=== PATIENT | male | born 1960 | race Caucasian/White ===

== ENCOUNTER → 2017-05-26 | Outpatient (CLI) | payer BC ==
[2017-05-26 08:50] LABS: Blood Urea Nitrogen 14 mg/dL (9-20); Non-African American GFR(MDRD) >60 (>60 ml/min/1.73 sqM)
--- NOTE | 2017-05-26 09:43 | CT ---
EXAMINATION TYPE: CT ChestAbdPelvis w con DATE OF EXAM: 05/26/2017 COMPARISON: NONE HISTORY: Follow up to prostate CA CT DLP: 1836 mGycm Automated exposure control for dose reduction was used. CONTRAST: CT scan of the chest, abdomen and pelvis is performed with Oral Contrast and with IV Contrast, patien t injected with 100 mL of Omnipaque 300. FINDINGS: LUNGS: The lungs are grossly clear, there is no concerning parenchymal mass or nodule identified. T here is no pleural effusion or pneumothorax seen. The tracheobronchial tree is patent. Linear change s involving the left lower lobe most typical scar or atelectasis. No sizable pulmonary nodules. There is a pleural-based nodule measuring 1 mm within the superior segment right lower lobe and posteriorl y within the left superior segment lower lobe. 3 mm subpleural nodule anterior segment right upper lo be stable Findings stable from previous. MEDIASTINUM: Soft tissue fullness in the mediastinum is stable from the previous exam measures 13 Joaquín nsfield units and may represent a small amount of pericardial fluid rather than adenopathy. OTHER: No additional significant abnormality is seen. LIVER/GB: Hyperdense focus within the right lobe of the liver measuring 1.1 cm is retrospectively sta ble may represent flash hemangioma. Metastasis felt less likely. Not entirely excluded.. PANCREAS: No significant abnormality is seen. SPLEEN: No significant abnormality is seen. ADRENALS: No significant abnormality is seen. KIDNEYS: No significant abnormality is seen. BOWEL: No significant abnormality is seen. LYMPH NODES: There is interval enlargement of a iliac chain lymph nodes which previously measured 1 c m or less and now measure 1.5 cm on the right in short axis. Additional 1 cm node also noted. OSSEOUS STRUCTURES: There are enlarged and sclerotic lesions involving the left rib cage which appear on the previous exam appear to be increased in size. Sclerotic focus involving the sternum on the ri ght also suggestive of metastasis there is numerous focal areas of sclerosis throughout the vertebral column of the thoracic and lumbar spine with age indeterminate superior endplate compression deformi ties of L5 and L2. Findings are compatible with bony metastases. Facet arthropathy and degenerative c hange also noted. Sclerotic foci within the sacrum and right ischium and iliac bone are also suggesti ve of focal areas of metastases. Sclerosis involving the pubic rami bilaterally also suspicious of me tastasis. Sclerotic foci involving the rib cage on the right also noted. OTHER: Dilation of the left gonadal vessel stable from the previous exam. Prostate remains somewhat h eterogeneous in appearance and somewhat irregular morphology. IMPRESSION: 1. There is interval enlargement of right iliac chain lymphadenopathy now measuring short axis of 1.5 cm and previously measuring 1 cm. 2. There does appear to be progression of bony metastasis 3. Stable pulmonary nodules. All measure less than 5 mm
--- NOTE | 2017-05-26 14:11 | NM ---
EXAMINATION TYPE: NM bone scan whole body DATE OF EXAM: 05/26/2017 COMPARISON: Prior bone scan 03/24/2016, CT chest abdomen pelvis 05/26/2017 HISTORY: Prostate carcinoma, C 61, bone metastases, C 79.51 Delayed whole-body scanning was performed following the injection of 27.5 mCi Tc 99m MDP. Images acq uired 5 hours post injection. FINDINGS: There is been progression in the number and size of metastatic foci within the skeleton. Multiple foc i are present within the thoracic spine, bilateral ribs, pelvis, proximal right femur, right scapula, left shoulder. Soft tissue uptake is normal. Questionable focus over the right orbit region. IMPRESSION: Progression in size and number of metastatic foci.
== END | disposition home or self-care (01) ==
LOC: RADCTMAIN 08:02
PROVIDERS: ATTEND Internal Medicine Hematology & Oncology
DX: C61 Malignant neoplasm of prostate (principal); C79.51 Secondary malignant neoplasm of bone; R91.8 Other nonspecific abnormal finding of lung field; R59.0 Localized enlarged lymph nodes
CPT/HCPCS: 82565; 84520; 71260; 74177; 36415; 78306; A9503; Q9967

== ENCOUNTER → 2017-12-13 | Outpatient (CLI) | payer BC ==
[2017-12-13 09:08] LABS: Blood Urea Nitrogen 22 mg/dL (9-20)
--- NOTE | 2017-12-13 10:33 | CT ---
EXAMINATION TYPE: CT ChestAbdPelvis w con DATE OF EXAM: 12/13/2017 COMPARISON: CT chest abdomen and pelvis May 26, 2017 and older studies HISTORY: Follow up to stage IV prostate cancer present for 3 years currently on chemotherapy. CT DLP: 679.1 mGycm. Automated Exposure Control for Dose Reduction was Utilized. CONTRAST: CT scan of the thorax, abdomen and pelvis is performed with oral and with IV Contrast, patient inject ed with 100 mL of Omnipaque 300. FINDINGS: LUNGS: There is mild biapical pleural/parenchymal scarring redemonstrated. There is posterior and lef t basilar linear scarring redemonstrated. There is no suspicious greater than 5 mm noncalcified nodul e or mass. There is no pleural effusion or pneumothorax seen bilaterally. Tracheobronchial tree is pa tent. MEDIASTINUM: There are no greater than 1 cm hilar or mediastinal lymph nodes. No cardiomegaly or pe ricardial effusion is seen. OTHER: Small degree of bilateral gynecomastia is redemonstrated. LIVER/GB: No significant abnormality is appreciated. PANCREAS: No significant abnormality is seen. SPLEEN: No significant abnormality is seen. ADRENALS: No significant abnormality is seen. KIDNEYS: No significant abnormality is seen. BOWEL: No significant abnormality is seen. GENITAL ORGANS: Heterogeneous lobulated nonenlarged prostate gland or remnant is again seen bulging on bladder base. Adjacent pelvic phleboliths are redemonstrated. LYMPH NODES: There is persistent 1.3 x 1.1 cm right iliac chain lymph node axial image 104 felt sligh tly diminished in size from most recent prior. There is slightly less prominent but suspicious right common iliac lymph node measuring 10 x 9 mm axial image 97. Draining left gonadal vessel left periaortic region is redemonstrated. No new greater than 1cm abdomi nal or pelvic lymph nodes are appreciated. OSSEOUS STRUCTURES: There is redemonstration multifocal sclerotic lesions in the thoracic vertebra wi th some progression as for reference there is new right T11 sclerotic lesion coronal image 62 and new subtle right sclerotic T9 lesion coronal image 64. Prominent sclerotic lesions right T7 vertebra and diffuse left T5 vertebra are redemonstrated. There is new sclerosis distal right clavicle and new sc lerosis of the left coracoid process extending into glenoid cavity of the upper scapula for reference . There is healing or healed pathologic fractures left anterolateral seventh and lateral ninth ribs r edemonstrated. There is multilevel involvement in the lumbar spine with mild height loss superior L2, L3, and L5 endplates redemonstrated. There is facet arthropathy lower lumbar levels. OTHER: No significant additional abnormality is seen. IMPRESSION: Overall mixed response. Right pelvic adenopathy felt slightly improved versus prior. No n ew adenopathy is seen. Worsening osseous metastatic disease however is noted as detailed above.
--- NOTE | 2017-12-14 10:20 | NM ---
EXAMINATION TYPE: NM bone scan whole body DATE OF EXAM: 12/13/2017 COMPARISON: Prior bone scan 05/26/2017, CT chest abdomen pelvis 12/13/2017 HISTORY: Prostate carcinoma, C 61 Delayed whole-body scanning was performed following the injection of 25.7 mCi Tc 99m MDP. Images acq uired 6 hours post injection. FINDINGS: Too numerous to count foci are present throughout the skeleton of increased [employer] upta ke include the calvarium convexity, clavicle on the right, left scapula, ribs and sternum, thoracic a nd lumbar spine, pelvis, proximal femurs with some progression in numbers of foci and intensity, size of lesions as compared to prior exam. IMPRESSION: Progression in size and number of metastatic foci
== END | disposition home or self-care (01) ==
LOC: RADCTMAIN 08:30
PROVIDERS: ATTEND Internal Medicine Hematology & Oncology
DX: C79.51 Secondary malignant neoplasm of bone (principal); C61 Malignant neoplasm of prostate
CPT/HCPCS: 82565; 84520; 71260; 74177; 36415; 78306; A9503; Q9967

== ENCOUNTER → 2018-01-22 | Outpatient (CLI) | payer BC ==
--- NOTE | 2018-01-22 13:54 | US ---
EXAMINATION TYPE: US venous doppler duplex UE RT DATE OF EXAM: 01/22/2018 COMPARISON: NONE CLINICAL HISTORY: Pain in Right Upper Limb M79.621. Pain right arm. Edema and bruising near right elb ow. Neulasta patch right upper arm last week SIDE PERFORMED: right Grayscale, color doppler, spectral doppler imaging performed of the deep veins of the right upper ext remity. There is normal flow, compressibility and vascular waveforms. Mild nonspecific subcutaneous edema is noted. Right Arm: No evidence of DVT IMPRESSION: No sonographic evidence of deep venous thrombosis within the right upper extremity. Nonspecific subcu taneous edema is mild.
== END | disposition home or self-care (01) ==
LOC: RADUSWWP 12:38
PROVIDERS: ATTEND Internal Medicine Hematology & Oncology
DX: R60.0 Localized edema (principal)

== ENCOUNTER → 2018-03-14 | Outpatient (CLI) | payer MEDICARE, OTHER ==
--- NOTE | 2018-03-14 15:12 | CT ---
EXAMINATION TYPE: CT ChestAbdPelvis wo con DATE OF EXAM: 03/14/2018 COMPARISON: 12/13/2017 HISTORY: Prostate Cancer CT DLP: 1212mGycm Unenhanced CT of the Chest, Abdomen and Pelvis Unenhanced CT of the chest ,abdomen and pelvis is performed. The lack of intravenous contrast limits evaluation of the solid and hollow viscera. Oral contrast: Yes CT Chest: LUNGS: New mild pleural parenchymal density right lower lobe. No focal consolidation. No pulmonary no dule or mass is detected. No pleural effusion or CT evidence of interstitial lung disease. MEDIASTINUM: Thoracic aorta is of normal caliber. The heart is not enlarged. No evidence for media stinal mass or adenopathy. HILAR STRUCTURES: No evidence for mass. No hilar adenopathy is appreciated. OTHER: No significant abnormality. CONTRAST CT ABDOMEN AND PELVIS: LIVER/GB: Lack of contrast limits evaluation however there are multiple hypoattenuating masses noted throughout the liver compatible with metastatic disease. The largest mass measures approximately 12.6 x 12.4 cm and involves both right and left hepatic lobes. Masses involve all segments. There is evid ence of hepatomegaly. PANCREAS: No inflammation. No distinct mass. SPLEEN: No splenic enlargement. No lesion seen. ADRENALS: No nodule. No thickening. KIDNEYS/BLADDER: No hydronephrosis. No nephrolithiasis. No disctinct renal mass. BOWEL: Normal appendix. Normal bowel caliber. No inflammation. GENITAL ORGANS: No gross abnormality. LYMPH NODES: Stable right iliac chain adenopathy measuring 1.2 cm. Additional periaortic lymph nodes measuring less than 1 cm. AORTA: No significant abnormality. OSSEOUS STRUCTURES: Blastic metastatic lesions are again noted involving the thoracic and lumbar vert ebra with the mild loss of height stable from prior examination. Expansile rib lesions noted. Overall no significant interval change with regards to metastatic disease to the bony structures. OTHER: Small amount of free fluid within the pelvis. IMPRESSION: 1. Innumerable hepatic masses compatible with metastatic disease. Associated hepatomegaly. 2. Stable blastic metastatic disease to the osseous structures. 3. Stable right iliac chain adenopathy.
--- NOTE | 2018-03-14 15:33 | NM ---
EXAMINATION TYPE: NM bone scan whole body DATE OF EXAM: 03/14/2018 COMPARISON: CT scan 03/14/2018, bone scan 12/13/2017 HISTORY: Prostate cancer Delayed whole-body scanning was performed following the injection of 24.7 mCi Tc 99m MDP. Images acq uired 3.5 hours post injection. FINDINGS: Too numerous to count foci are present throughout the skeleton of increased [employer] upta ke include the calvarium convexity, clavicle on the right, left scapula, ribs and sternum, thoracic a nd lumbar spine, pelvis, proximal femurs which is stable compared to prior exam. IMPRESSION: Stable diffuse skeletal metastasis has a similar appearance to the prior exam without evidence of sig nificant interval change.
== END ==
LOC: RADNMMAIN 10:46
PROVIDERS: ATTEND Internal Medicine Hematology & Oncology
DX: C61 Malignant neoplasm of prostate (principal); C79.51 Secondary malignant neoplasm of bone; R16.0 Hepatomegaly, not elsewhere classified
CPT/HCPCS: 82565; 84520; 71250; 74176; 36415; 78306; A9503

== ENCOUNTER 2018-03-15 13:23 | Inpatient (IN) | payer MEDICARE, OTHER ==
[2018-03-15] MEDS ORDERED: SODIUM CHLORIDE 0.9% 2,000 ML IV STA (14:10)
[2018-03-15] MEDS ORDERED: MORPHINE SULFATE 4 MG/ML SYRINGE IVP STA ×2 (14:27→16:02)
[2018-03-15] MEDS ORDERED: ONDANSETRON 4 MG/2 ML VIAL IVP STA (14:27)
--- NOTE | 2018-03-15 14:51 | ED ---
Abdominal Pain HPI - General Chief Complaint: Abdominal Pain Stated Complaint: abd pain Time Seen by Provider: 03/15/18 14:10 Source: patient, RN notes reviewed Mode of arrival: wheelchair Limitations: no limitations - History of Present Illness Initial Comments: This a 57-year-old male presents emergency Department chief complaint of worsening abdominal pain, dehydration. Patient is currently being treated for prostate cancer by Dr. He. Patient states she's been on several different chemotherapeutic treatments. Last treatment in the middle of February. Patient has computed tomography scan and bone scan yesterday. Patient states that he's had worsening upper abdominal pain. Patient states he's nauseated and has not been eating for one week. Patient spends concerned about dehydration. He did have an IV fluids earlier this week. Patient family states that he is more pale and usually does complain of weakness generalized, shortness of breath worse with exertion. Patient states she's had this in the past also. Denies any headache or dizziness. - Related Data Home Medications Medication Instructions Recorded Confirmed Hydrocodone/Acetaminophen [[place] 1 tab PO Q4HR PRN 03/15/18 03/15/18 7.5-325] Ibuprofen [Motrin Ib] 600 mg PO TID PRN 03/15/18 03/15/18 Ondansetron HCl [Zofran] 8 mg PO Q6HR PRN 03/15/18 03/15/18 Pantoprazole [Protonix] 40 mg PO DAILY 03/15/18 03/15/18 Allergies Allergy/AdvReac Type Severity Reaction Status Date / Time No Known Allergies Allergy Verified 03/15/18 14:22 Review of Systems ROS Statement: Those systems with pertinent positive or pertinent negative responses have been documented in the HPI. ROS Other: All systems not noted in ROS Statement are negative. Past Medical History Past Medical History: Cancer, GERD/Reflux Additional Past Medical History / Comment(s): prostate cancer History of Any Multi-Drug Resistant Organisms: None Reported Past Surgical History: Prostate Surgery Past Psychological History: No Psychological Hx Reported Smoking Status: Never smoker Past Alcohol Use History: None Reported Past Drug Use History: None Reported General Exam Limitations: no limitations General appearance: alert, in no apparent distress Head exam: Present: atraumatic, normocephalic, normal inspection Neck exam: Present: normal inspection. Absent: tenderness, meningismus, lymphadenopathy Respiratory exam: Present: normal lung sounds bilaterally. Absent: respiratory distress, wheezes, rales, rhonchi, stridor Cardiovascular Exam: Present: normal rhythm, tachycardia, normal heart sounds. Absent: systolic murmur, diastolic murmur, rubs, gallop, clicks GI/Abdominal exam: Present: soft, distended, tenderness (Moderate to severe tenderness in the epigastric quadrant), rigid, normal bowel sounds. Absent: guarding, rebound Back exam: Absent: CVA tenderness (R), CVA tenderness (L) Skin exam: Present: warm, dry, intact, normal color. Absent: rash Course Vital Signs 03/15/18 13:26 Temperature 98.1 F Pulse Rate 108 H Respiratory 20 Rate Blood Pressure 136/60 O2 Sat by Pulse 99 Oximetry Medical Decision Making - Medical Decision Making 57-year-old male present emergency department for dehydration, abdominal pain. Patient CT was reviewed from yesterday which showed extensive hepatic mass, osseus lesions. Patient is found to be treated dehydrated, intractable abdominal pain. Patient will be admitted to the hospital at this time for IV hydration, pain control consultation to oncology. - Lab Data Result diagrams: 03/15/18 14:38 03/15/18 14:38 Lab Results 03/15/18 03/15/18 03/15/18 Range/Units 14:38 14:38 14:38 WBC 8.3 (3.8-10.6) k/uL RBC 2.63 L (4.30-5.90) m/uL Hgb 8.3 L (13.0-17.5) gm/dL Hct 27.1 L (39.0-53.0) % MCV 103.1 H (80.0-100.0) fL MCH 31.6 (25.0-35.0) pg MCHC 30.6 L (31.0-37.0) g/dL RDW 16.8 H (11.5-15.5) % Plt Count 87 L (150-450) k/uL Neutrophils % 83 % Lymphocytes % 9 % Monocytes % 6 % Eosinophils % 1 % Basophils % 0 % Neutrophils # 6.9 (1.3-7.7) k/uL Lymphocytes # 0.7 L (1.0-4.8) k/uL Monocytes # 0.5 (0-1.0) k/uL Eosinophils # 0.1 (0-0.7) k/uL Basophils # 0.0 (0-0.2) k/uL Manual Slide Review Performed Polychromasia Present Hypochromasia Marked Anisocytosis Slight Anisocytosis (manual) Present Macrocytosis Moderate Fragmented RBCs Present Sodium 140 (137-145) mmol/L Potassium 5.2 H (3.5-5.1) mmol/L Chloride 102 (98-107) mmol/L Carbon Dioxide 15 L (22-30) mmol/L Anion Gap 23 mmol/L BUN 65 H (9-20) mg/dL Creatinine 2.54 H (0.66-1.25) mg/dL Est GFR (CKD-EPI)AfAm 31 (>60 ml/min/1.73 sqM) Est GFR (CKD-EPI)NonAf 27 (>60 ml/min/1.73 sqM) Glucose 99 (74-99) mg/dL Plasma Lactic Acid Neo 2.2 H* (0.7-2.0) mmol/L Calcium 7.9 L (8.4-10.2) mg/dL Total Bilirubin 1.2 (0.2-1.3) mg/dL AST 937 H (17-59) U/L ALT 654 H (21-72) U/L Alkaline Phosphatase 659 H (38-126) U/L Total Protein 6.8 (6.3-8.2) g/dL Albumin 4.1 (3.5-5.0) g/dL Amylase 54 (30-110) U/L Lipase 79 (23-300) U/L Disposition Clinical Impression: Intractable abdominal pain, Prostate cancer, primary, with metastasis from prostate to other site, Transaminitis, Acute kidney injury, Dehydration Disposition: ADMITTED IP TO THIS [facility] Condition: Fair Referrals: Stevie He MD [Primary Care Provider] - 1-2 days
[2018-03-15 15:06] LABS: Albumin 4.1 g/dL (3.5-5.0); Calcium 7.9 mg/dL (8.4-10.2); Potassium 5.2 mmol/L (3.5-5.1); Total Bilirubin 1.2 mg/dL (0.2-1.3); Total Protein 6.8 g/dL (6.3-8.2)
[2018-03-15 15:16] LABS: Anisocytosis Slight; Basophils % (A) 0 %; Eosinophils # (A) 0.1 k/uL (0-0.7); Eosinophils % (A) 1 %; HCT 27.1 % (39.0-53.0); HGB 8.3 gm/dL (13.0-17.5); Hypochromasia Marked; Lymphocytes # (A) 0.7 k/uL (1.0-4.8); Lymphocytes % (A) 9 %; MCH 31.6 pg (25.0-35.0); MCHC 30.6 g/dL (31.0-37.0); MCV 103.1 fL (80.0-100.0); Macrocytosis Moderate; Mean Platelet Volume 9.4; Monocytes # (A) 0.5 k/uL (0-1.0); Monocytes % (A) 6 %; Neutrophils # (A) 6.9 k/uL (1.3-7.7); Neutrophils % (A) 83 %; RBC 2.63 m/uL (4.30-5.90); RDW 16.8 % (11.5-15.5); WBC 8.3 k/uL (3.8-10.6)
[2018-03-15 15:52] LABS: Anisocytosis (M) Present; Polychromasia Present
[2018-03-15 15:53] LABS: Platelet Count 87 k/uL (150-450); RBC Fragments Present
[2018-03-15] MEDS ORDERED: NALOXONE 0.4 MG/ML 1 ML VIAL IV PRN (16:18)
[2018-03-15] MEDS ORDERED: MORPHINE SULFATE 4 MG/ML SYRINGE IV PRN (16:18)
[2018-03-15] MEDS ORDERED: ONDANSETRON 4 MG/2 ML VIAL IVP PRN (16:18)
[2018-03-15 17:23] LABS: Amorphous Sediment,Urine Rare /hpf; Appearance,Urine Cloudy (Clear); Bilirubin,Urine Negative (Negative); Blood,Urine Small (Negative); Color,Urine Yellow; Glucose,Urine (UA) Negative (Negative); Hyaline Casts,Urine 10 /lpf (0-2); Ketones,Urine 1+ (Negative); Leukocyte Esterase,Urine Negative (Negative); Mucus,Urine Rare /hpf; Nitrite,Urine Negative (Negative); PH, Urine 5.5 (5.0-8.0); Protein,Urine 2+ (Negative); RBC,Urine 2 /hpf (0-5); Specific Gravity,Urine 1.012 (1.001-1.035); Squamous Epithelial Cell,Urine 1 /hpf (0-4); Urobilinogen,Urine <2.0 mg/dL (<2.0); WBC,Urine 12 /hpf (0-5)
[2018-03-15] MEDS: SODIUM CHLORIDE 0.9% 1,000 ML IV SCH (18:13)
[2018-03-15] MEDS: oxyCODONE-APAP 5-325MG 1 EACH TAB PO PRN ×2 (18:17→22:22)
[2018-03-16] MEDS: SODIUM CHLORIDE 0.9% 1,000 ML IV SCH ×2 (03:11→13:21)
[2018-03-16] MEDS: oxyCODONE-APAP 5-325MG 1 EACH TAB PO PRN ×2 (03:13→07:59)
[2018-03-16] MEDS: PANTOPRAZOLE 40 MG/10 ML VIAL IV SCH (08:01)
[2018-03-16] MEDS ORDERED: ONDANSETRON 4 MG/2 ML VIAL IVP PRN (08:25)
[2018-03-16 08:27] LABS: Anisocytosis Slight; Basophils % (A) 0 %; Eosinophils # (A) 0.1 k/uL (0-0.7); Eosinophils % (A) 1 %; HGB 7.3 gm/dL (13.0-17.5); Hypochromasia Marked; Lymphocytes # (A) 0.7 k/uL (1.0-4.8); Lymphocytes % (A) 9 %; MCH 32.1 pg (25.0-35.0); MCHC 30.4 g/dL (31.0-37.0); MCV 105.5 fL (80.0-100.0); Macrocytosis Moderate; Mean Platelet Volume 8.5; Monocytes # (A) 0.5 k/uL (0-1.0); Monocytes % (A) 6 %; Neutrophils # (A) 6.8 k/uL (1.3-7.7); Neutrophils % (A) 81 %; RBC 2.27 m/uL (4.30-5.90); WBC 8.4 k/uL (3.8-10.6)
[2018-03-16 08:29] LABS: Platelet Count 73 k/uL (150-450)
[2018-03-16 08:36] LABS: Potassium 5.3 mmol/L (3.5-5.1)
[2018-03-16 09:57] VITALS: BMI 24.4
[2018-03-16 10:13] LABS: Magnesium 3.2 mg/dL (1.6-2.3); Phosphorus 3.7 mg/dL (2.5-4.5)
[2018-03-16] MEDS: MORPHINE ORAL SOLN 10 MG/5 ML CUP PO PRN ×3 (10:14→20:15)
--- NOTE | 2018-03-16 11:56 | P.HPIM ---
History of Present Illness H&P Date: 03/16/18 Chief Complaint: Abdominal pain, nausea 57-year-old male who presented to the emergency room with a chief complaint of abdominal pain, nausea, and generalized weakness. He reports shortness of breath with exertion, but not at rest. He fatigues very quickly. He states he has been unable to tolerate PO intake for at least a week. The patient has a history of prostate cancer with mets to the liver and bone. He states he has underwent 18 rounds of chemotherapy. He reports he has an appointment with [facility] in [place] on 03/20/2018 for evaluation to be placed into a clinical trial. CT abdomen and pelvis completed 03/14/2018 revealed multiple hypoattenuating masses noted throughout the liver compatible with metastatic disease. The largest mass measures approximately 12.612.4 cm and involves both right and left hepatic lobes. Masses involve all segments. There is evidence of hepatomegaly. Stable right iliac chain adenopathy measuring 1.2 cm. Stable blastic metastatic disease to the osseous structures. Bone scan completed 03/14/2018 revealed too numerous to count foci are present throughout the skeleton of increased radio pharmaceutical uptake include the calvarium convexity, clavicle on the right, left scapula, ribs and sternum, thoracic and lumbar spine, pelvis, proximal femurs which are stable compared to prior examination Laboratory data: WBC 8.3. Hemoglobin 8.3. Platelet count 87. Sodium 140. Potassium 5.2. BUN 65. Creatinine 2.54. Glucose 99. Lactic acid 2.2. AST 937. ALT 654. Alkaline phosphatase 659. Urinalysis reveals: 2+ proteinuria, 1+ ketones, small blood, WBC 12, few WBC clumps, hyaline casts 10 The patient was admitted to the hospital under the care of Dr. Madden. Consultations were placed to Dr. He. Review of Systems GENERAL: Patient denies fever. Denies chills. EYES: Denies blurred vision. Denies vision changes. Denies eye pain. EARS, NOSE, MOUTH, & THROAT: Denies headache. Denies sore throat. Denies ear pain. RESPIRATORY: Positive for shortness of breath with exertion. Denies sputum production. Denies hemoptysis. CARDIOVASCULAR: Denies chest pain or pressure. Denies palpitations. Denies arrhythmias. GASTROINTESTINAL: Positive for abdominal pain. Positive for nausea. Positive for decreased appetite. Positive for decreased oral intake x minimum of one week. Denies heartburn. Denies blood in the stool. GENITOURINARY: Denies burning. Denies dysuria. Denies cloudy urine. Denies blood in the urine. MUSCULOSKELETAL: Positive for extensive skeletal pain secondary to bone metastases INTEGUMENTARY: Denies pruitis. Denies rash. PSYCHIATRIC: Positive for depression. Denies suicidal or homicial ideations. ENDOCRINE: Positive for weight loss, unintentional. Positive for generalized weakness and fatigue. HEMATOLOGIC: Positive for anemia. Denies bleeding disorders. Past Medical History Past Medical History: Cancer, GERD/Reflux Additional Past Medical History / Comment(s): "prostate cancer w/mets to skeletal system",family stated he had he has had radiation and he had chemo last on 02-27-18 History of Any Multi-Drug Resistant Organisms: None Reported Past Surgical History: Prostate Surgery Past Anesthesia/Blood Transfusion Reactions: Motion Sickness Smoking Status: Never smoker - Past Family History Father Family Medical History: Diabetes Mellitus, Osteoarthritis (OA), Renal Disease Additional Family Medical History / Comment(s): pacemaker, dialysis Mother Family Medical History: Renal Disease Additional Family Medical History / Comment(s): sepsis/renal failure, irreg herat rythym Medications and Allergies Home Medications Medication Instructions Recorded Confirmed Type Hydrocodone/Acetaminophen [[place] 1 tab PO Q4HR PRN 03/15/18 03/15/18 History 7.5-325] Ibuprofen [Motrin Ib] 600 mg PO TID PRN 03/15/18 03/15/18 History Ondansetron HCl [Zofran] 8 mg PO Q6HR PRN 03/15/18 03/15/18 History Pantoprazole [Protonix] 40 mg PO DAILY 03/15/18 03/15/18 History Allergies Allergy/AdvReac Type Severity Reaction Status Date / Time No Known Allergies Allergy Verified 03/15/18 14:22 Physical Exam Vitals: Vital Signs Temp Pulse Pulse Resp BP BP Pulse Ox 03/16/18 08:04 97.4 F L 98 16 130/76 98 03/15/18 22:10 97.8 F 106 H 17 120/64 98 03/15/18 17:13 108 H 16 153/71 97 03/15/18 15:30 90 18 120/79 97 03/15/18 13:26 98.1 F 108 H 20 136/60 99 Intake and Output 03/15/18 03/16/18 03/16/18 22:59 06:59 14:59 Intake Total 2180 Output Total 100 Balance 2079 Intake: Intake, IV Titration 1100 Amount Sodium Chloride 0.9% 1, 1100 000 ml @ 100 mls/hr IV . Q10H [facility] Rx#:[id number] Oral 1080 Output: Urine 100 Other: Voiding Method Toilet Urinal # Voids 2 Weight 81.647 kg GENERAL: This is a 57-year-old male who appears pale and appears uncomfortable and in pain. Pleasant and cooperative. HEENT: Head is atraumatic, normocephalic. Pupils are equal, round, and reactive to light. Sclerae anicteric. Conjunctivae are clear. Mucus membranes of the mouth are moist. Neck is supple. RESPIRATORY: Clear to ausculation. No wheezes, rales, or rhonchi. No use of accessory muscles. Patient maintaining oxygen saturation greater than 92%. CARDIOVASCULAR: Regular rate and rhythm. S1 and S2 noted. No systolic or diastolic murmur auscultated. No JVD noted. No S3 or S4 noted. GASTROINTESTINAL: Abdomen round. Firm and mildly distended. Hypoactive bowel sounds auscultated x 4 quadrants. Pain and tenderness noted upon palpation. INTEGUMENTARY: No cyanosis. No jaundice. No rashes noted. No cellulitis noted. EXTREMITIES: Extremities tender to palpation with generalized pain throughout. 2 + peripheral pulses. No evidence of peripheral edema. No calf tenderness noted. NEUROLOGIC: Cranial nerves II-XII intact. PSYCHIATRIC: Awake, alert, and oriented X 3. Appropriate affect. Intact judgement and insight. Appears to be in good spirits this morning. Results CBC & Chem 7: 03/16/18 08:08 03/16/18 08:14 Labs: Abnormal Lab Results - Last 24 Hours (Table) 03/15/18 03/15/18 03/15/18 Range/Units 14:38 14:38 14:38 RBC 2.63 L (4.30-5.90) m/uL Hgb 8.3 L (13.0-17.5) gm/dL Hct 27.1 L (39.0-53.0) % MCV 103.1 H (80.0-100.0) fL MCHC 30.6 L (31.0-37.0) g/dL RDW 16.8 H (11.5-15.5) % Plt Count 87 L (150-450) k/uL Lymphocytes # 0.7 L (1.0-4.8) k/uL Potassium 5.2 H (3.5-5.1) mmol/L Carbon Dioxide 15 L (22-30) mmol/L BUN 65 H (9-20) mg/dL Creatinine 2.54 H (0.66-1.25) mg/dL Glucose (74-99) mg/dL Plasma Lactic Acid Neo 2.2 H* (0.7-2.0) mmol/L Calcium 7.9 L (8.4-10.2) mg/dL Magnesium (1.6-2.3) mg/dL AST 937 H (17-59) U/L ALT 654 H (21-72) U/L Alkaline Phosphatase 659 H (38-126) U/L Triglycerides (<150) mg/dL Urine Protein (Negative) Urine Ketones (Negative) Urine Blood (Negative) Urine WBC (0-5) /hpf Urine WBC Clumps (None) /hpf Amorphous Sediment (None) /hpf Hyaline Casts (0-2) /lpf Urine Mucus (None) /hpf 03/15/18 03/16/18 03/16/18 Range/Units 17:00 08:08 08:14 RBC 2.27 L (4.30-5.90) m/uL Hgb 7.3 L (13.0-17.5) gm/dL Hct 24.0 L (39.0-53.0) % MCV 105.5 H (80.0-100.0) fL MCHC 30.4 L (31.0-37.0) g/dL RDW 17.0 H (11.5-15.5) % Plt Count 73 L (150-450) k/uL Lymphocytes # 0.7 L (1.0-4.8) k/uL Potassium 5.3 H (3.5-5.1) mmol/L Carbon Dioxide 13 L (22-30) mmol/L BUN 68 H (9-20) mg/dL Creatinine 2.46 H (0.66-1.25) mg/dL Glucose 107 H (74-99) mg/dL Plasma Lactic Acid Neo (0.7-2.0) mmol/L Calcium 7.0 L (8.4-10.2) mg/dL Magnesium (1.6-2.3) mg/dL AST (17-59) U/L ALT (21-72) U/L Alkaline Phosphatase (38-126) U/L Triglycerides (<150) mg/dL Urine Protein 2+ H (Negative) Urine Ketones 1+ H (Negative) Urine Blood Small H (Negative) Urine WBC 12 H (0-5) /hpf Urine WBC Clumps Few H (None) /hpf Amorphous Sediment Rare H (None) /hpf Hyaline Casts 10 H (0-2) /lpf Urine Mucus Rare H (None) /hpf 03/16/18 Range/Units 08:14 RBC (4.30-5.90) m/uL Hgb (13.0-17.5) gm/dL Hct (39.0-53.0) % MCV (80.0-100.0) fL MCHC (31.0-37.0) g/dL RDW (11.5-15.5) % Plt Count (150-450) k/uL Lymphocytes # (1.0-4.8) k/uL Potassium (3.5-5.1) mmol/L Carbon Dioxide (22-30) mmol/L BUN (9-20) mg/dL Creatinine (0.66-1.25) mg/dL Glucose (74-99) mg/dL Plasma Lactic Acid Neo (0.7-2.0) mmol/L Calcium (8.4-10.2) mg/dL Magnesium 3.2 H (1.6-2.3) mg/dL AST (17-59) U/L ALT (21-72) U/L Alkaline Phosphatase (38-126) U/L Triglycerides 267 H (<150) mg/dL Urine Protein (Negative) Urine Ketones (Negative) Urine Blood (Negative) Urine WBC (0-5) /hpf Urine WBC Clumps (None) /hpf Amorphous Sediment (None) /hpf Hyaline Casts (0-2) /lpf Urine Mucus (None) /hpf Microbiology - Last 24 Hours (Table) 05/03/18 17:00 Urine Culture - Preliminary Urine,Voided Thrombosis Risk Factor Assmnt - Choose All That Apply Each Factor Represents 1 point: Age 41-60 years Each Risk Factor Represents 2 Points: Malignancy Thrombosis Risk Factor Assessment Total Risk Factor Score: 3 Thrombosis Risk Factor Assessment Level: Moderate Risk Assessment and Plan Plan: ASSESSMENT: Prostate cancer with metastasis to liver and bone, s/p 18 rounds of chemotherapy per patient Anemia and thrombocytopenia, secondary to above Abdominal pain and nausea with decreased intake x 1 week, may be secondary to metastatic disease, although can not rule out underlying condition Acute kidney injury, creatinine 2.54 on admission, baseline 0.8, likely multifactorial secondary to chemotherapy regimen, dehydration, and decreased oral intake x 1 week, along with daily NSAID use as patient takes Motrin 600mg TID outpatient Hyperkalemia Elevated lactic acid, improved with IV hydration, no obvious infectious disease process at this time Elevated LFTs, secondary to metastatic disease Moderate protein calorie malnutrition with little to no PO intake x 1 week Generalized pain secondary to mets to bone Debility and difficulty with ambulation secondary to CA with mets PLAN: Hematology/oncology on consult. Appreciate recommendations and input Obtain blood cultures x 2 Consult infectious disease for evaluation Possible general surgery consult for abdominal pain. Will defer at this time and re-evaluate tomorrow Increase zofran to every 6 hours Increase percocet to 10mg. Continue morphine. If pain does not improve, will add duragesic patch Encourage PO intake Continue IV fluids Monitor kidney function and potassium. Will recheck in AM. Defer nephro consult at this time. Avoid nephrotoxic agents. Dietary consulted for TPN. Original plan was to place PICC line for TPN. However , due to supply shortage of TPN, will hold off on PICC line and initiate PPN for now. Aware that GI tract for nutrition is best but due to patients abdominal pain and nausea will hold off on tube feedings at this time and continue with PPN. Home meds as appropriate GI prophylaxis: Protonix 40 mg IV Daily DVT prophylaxis: Encourage ambulation as tolerated Monitor vital signs and address as appropriate Further recommendations pending patient's course Nurse practitioner note has been reviewed by physician. Signing provider agrees with the documented findings, assessment, and plan of care.
[2018-03-16] MEDS ORDERED: CALCIUM GLUCONATE 1,000 MG in SODIUM CHLORIDE 0.9% 100 ML IVPB ONE (12:00)
[2018-03-16] MEDS: oxyCODONE-APAP 10-325MG 1 EACH TAB PO PRN ×2 (12:57→17:30)
[2018-03-16] MEDS: MVI, ADULT NO.4 WITH VIT K 10 ML, TRACE (CONC-1ML/DOSE) 1 ML in AMIN 2.4%/DEX 6.8%/LIPI... IV SCH ×3 (13:21)
--- NOTE | 2018-03-16 16:37 | P.CONS ---
History of Present Illness - Reason for Consult Consult date: 03/16/18 Metastatic prostate cancer with progression - History of Present Illness Mr. Fernandez is a 57 yr old WM who apparently had elevated PSA in 2013, noted during work physical. He does not recall the exact value and neglected to follow up. PSA done in 03/27 was elevated to 297. Over 1 to 2 months prior, he had been having increasing difficulty in urination and left sided back pain. He was seen by Dr. Marshall on examination was found to have enlarged prostate with induration of the entire gland. Prostate bx on 03/24/15 revealed involvement of all 12 cores with adenocarcinoma, Whitwell's 8. Bone scan from 03/24/15 showed intense uptake in anterior left lower rib cage, upper left rib cage, and extensive abnormal uptake in L3-5. Uptake was also noted in the left sacrum, and upper thoracic spine. CT AP showed marked right common illiac adenopathy 7 .5 x 3.6 cm as well as right internal illiac 3.1 cm, bilateral pelvic side wall adenopathy, the largest 1.3 cm on the right. There appeared to be a pathologic vertebral body fracture at L3. He recieved firmagon injections on 03/26/15 and started Casodex on the same day. He started radiation to the L spine on 04/07/15. He completed RT on 04/20/15, and started chemo with Taxotere and Prednisone ( combine chemo-hormona therapy) . He is s/p 6, cycles, completing those on 08/04/15. He then continued hormonal manipulation with Firmagon, Casodex and Prednisone. However PSA in early 03/28 was increased to 27. He started Zytiga and prednisone begining of 04/28. He has continued xgeva and Firmagon with Urology. PSA continued to increase leading to change to Xtandi in mid 01/27. He has increased fatigue with the Xtandi. He had increase left shoulder and LUE pain with Xrays negative. Xtandi was stopped due to side effects on 04/18/17. PSA from 04/29 and 05/29 showed progression, confirmed on bone scan and CT CAP , especially in the skeleton. He was started back on Taxotere, with dose #1 on 06/15/17. He is s/p 8 cycles His PSA continued to rise, and he was changed to Jevtana on 12/05/17. He is s/ p 4 cycles, with the last on 02/07/18. unfortunately the patient did not respond and continue to progess. It was therefore decided to stop Jevtana , when he was seen in the office on 02/26/18. With treatment options being quite limited, he was referred to the [facility] [place], for an opinion. He is to be seen there on 03/20/18 over the last 2 weeks or so, the patient has had progressive fatigue, decrease in appetite, abdominal pain s well as shortness of breath on exertion. He received hydration in the office on 03/12/18 with some relief. however this was transient and symptoms continued to progress. he therefore came into the emergency room, where he was found to be in intractable pain, as well as clinically dehydrated. He was therefore admitted for further management, and consult placed Review of Systems Constitutional: Reports chronic pain, Reports fatigue, Reports malaise, Reports poor appetite, Reports weakness, Reports weight loss Eyes: denies blurred vision, denies pain Ears: deny: decreased hearing, ear discharge, earache, tinnitus Ears, nose, mouth and throat: Denies headache, Denies sore throat Cardiovascular: Reports dyspnea on exertion Respiratory: Reports dyspnea Gastrointestinal: Reports abdominal pain, Reports loss of appetite, Reports nausea, Reports vomiting Genitourinary: Reports as per HPI Musculoskeletal: Reports as per HPI, Reports muscle weakness Musculoskeletal: bilateral: shoulder pain Integumentary: Denies pruritus, Denies rash Neurological: Reports weakness Psychiatric: Reports anxiety, Reports change in appetite, Denies depression Endocrine: Reports fatigue, Reports weight change Hematologic/Lymphatic: Reports as per HPI Past Medical History Past Medical History: Cancer, GERD/Reflux Additional Past Medical History / Comment(s): "prostate cancer w/mets to skeletal system",family stated he had he has had radiation and he had chemo last on 02-27-18 History of Any Multi-Drug Resistant Organisms: None Reported Past Surgical History: Prostate Surgery Past Anesthesia/Blood Transfusion Reactions: Motion Sickness Smoking Status: Never smoker - Past Family History Father Family Medical History: Diabetes Mellitus, Osteoarthritis (OA), Renal Disease Additional Family Medical History / Comment(s): pacemaker, dialysis Mother Family Medical History: Renal Disease Additional Family Medical History / Comment(s): sepsis/renal failure, irreg herat rythym Medications and Allergies Home Medications Medication Instructions Recorded Confirmed Type Hydrocodone/Acetaminophen [[place] 1 tab PO Q4HR PRN 03/15/18 03/15/18 History 7.5-325] Ibuprofen [Motrin Ib] 600 mg PO TID PRN 03/15/18 03/15/18 History Ondansetron HCl [Zofran] 8 mg PO Q6HR PRN 03/15/18 03/15/18 History Pantoprazole [Protonix] 40 mg PO DAILY 03/15/18 03/15/18 History Allergies Allergy/AdvReac Type Severity Reaction Status Date / Time No Known Allergies Allergy Verified 03/15/18 14:22 Physical Exam Vitals: Vital Signs Temp Pulse Pulse Resp BP BP Pulse Ox 03/16/18 08:04 97.4 F L 98 16 130/76 98 03/15/18 22:10 97.8 F 106 H 17 120/64 98 03/15/18 17:13 108 H 16 153/71 97 Intake and Output 03/16/18 03/16/18 03/16/18 06:59 14:59 22:59 Intake Total 2180 Output Total 100 Balance 2080 Intake: Intake, IV Titration 1100 Amount Sodium Chloride 0.9% 1, 1100 000 ml @ 100 mls/hr IV . Q10H [facility] Rx#:[id number] Oral 1080 Output: Urine 100 Other: Voiding Method Toilet Toilet Urinal Urinal # Voids 2 Weight 81.647 kg - Constitutional General appearance: mild distress (allergies) - EENT Eyes: EOMI, PERRLA ENT: hearing grossly normal, normal oropharynx - Neck Neck: no lymphadenopathy Thyroid: bilateral: normal size - Respiratory Respiratory: bilateral: CTA - Cardiovascular Rhythm: regular Heart sounds: normal: S1, S2 - Gastrointestinal General gastrointestinal: hepatomegaly (3 fingers below costal margin), soft - Integumentary Integumentary: normal - Neurologic Neurologic: CNII-XII intact - Musculoskeletal Musculoskeletal: generalized weakness, strength equal bilaterally - Psychiatric Psychiatric: A&O x's 3, appropriate affect, intact judgment & insight Results CBC & Chem 7: 03/16/18 08:08 03/16/18 08:14 Labs: Abnormal Lab Results - Last 24 Hours (Table) 03/15/18 03/16/18 03/16/18 Range/Units 17:00 08:08 08:14 RBC 2.27 L (4.30-5.90) m/uL Hgb 7.3 L (13.0-17.5) gm/dL Hct 24.0 L (39.0-53.0) % MCV 105.5 H (80.0-100.0) fL MCHC 30.4 L (31.0-37.0) g/dL RDW 17.0 H (11.5-15.5) % Plt Count 73 L (150-450) k/uL Lymphocytes # 0.7 L (1.0-4.8) k/uL Potassium 5.3 H (3.5-5.1) mmol/L Carbon Dioxide 13 L (22-30) mmol/L BUN 68 H (9-20) mg/dL Creatinine 2.46 H (0.66-1.25) mg/dL Glucose 107 H (74-99) mg/dL Calcium 7.0 L (8.4-10.2) mg/dL Magnesium (1.6-2.3) mg/dL Triglycerides (<150) mg/dL Urine Protein 2+ H (Negative) Urine Ketones 1+ H (Negative) Urine Blood Small H (Negative) Urine WBC 12 H (0-5) /hpf Urine WBC Clumps Few H (None) /hpf Amorphous Sediment Rare H (None) /hpf Hyaline Casts 10 H (0-2) /lpf Urine Mucus Rare H (None) /hpf 03/16/18 Range/Units 08:14 RBC (4.30-5.90) m/uL Hgb (13.0-17.5) gm/dL Hct (39.0-53.0) % MCV (80.0-100.0) fL MCHC (31.0-37.0) g/dL RDW (11.5-15.5) % Plt Count (150-450) k/uL Lymphocytes # (1.0-4.8) k/uL Potassium (3.5-5.1) mmol/L Carbon Dioxide (22-30) mmol/L BUN (9-20) mg/dL Creatinine (0.66-1.25) mg/dL Glucose (74-99) mg/dL Calcium (8.4-10.2) mg/dL Magnesium 3.2 H (1.6-2.3) mg/dL Triglycerides 267 H (<150) mg/dL Urine Protein (Negative) Urine Ketones (Negative) Urine Blood (Negative) Urine WBC (0-5) /hpf Urine WBC Clumps (None) /hpf Amorphous Sediment (None) /hpf Hyaline Casts (0-2) /lpf Urine Mucus (None) /hpf Microbiology - Last 24 Hours (Table) 03/15/18 17:00 Urine Culture - Preliminary Urine,Voided Comments: bone scan report reviewed CT scan - abdomen: report reviewed CT scan - pelvis: report reviewed Assessment and Plan (1) Prostate cancer, primary, with metastasis from prostate to other site Narrative/Plan: the patient's symptoms leading to this admission are related to progression of his prostate cancer. As noted in the HPI, the patient has failed multiple lines of therapy. Clinically he is progressing quite rapidly, with significant deterioration in terms of symptoms even over the last 2-3 weeks. In addition, on exam, there was marked increasein liver size compared to prior exam on in the office. His CT scans and bone scan from 03/14/18 were reviewed and discussed with him. Bony metastatic disease is quite diffuse but appears stable. However this can be difficult to assess. There is definite, marked progression in visceral metastatic disease specially in the liver. A second opinion has been set up for him at [facility], due to limited standard treatment options. The plan during this admission would be to treat him supportively, so that his symptoms are better controlled and he can be discharged and keep his appointment there. I discussed with him, that there is no guarantee that a good treatment option may be available, such as a promising clinical trial, even after his consultation at the [facility]. Given his very guarded prognosis, I discussed CODE STATUS with him. He was advised, that given the stage and clinical behavior of his cancer at this time, and no CODE STATUSwould be appropriate. He was agreeable to the same, and orders will be placed Current Visit: Yes Status: Acute Code(s): C79.9 - SECONDARY MALIGNANT NEOPLASM OF UNSPECIFIED SITE; C61 - MALIGNANT NEOPLASM OF PROSTATE SNOMED Code (s): 27253471 (2) Intractable abdominal pain Narrative/Plan: his is due to cancer progression. The patient was actually doing better with ibuprofen, but that is not an option now due to acute kidney injury. He was on fentanyl 25 microgram as an outpatient. This will be increased to 50. He was started on Roxanol recently. However he states that the Percocet that he is receiving here appears to be working better. i will thus for the liquid morphine , and utilize the Percocet with IV morphine as backup. Current Visit: Yes Status: Acute Code(s): R10.9 - UNSPECIFIED ABDOMINAL PAIN SNOMED Code(s): 25525125 (3) Acute kidney injury Narrative/Plan: this is due to a combination of dehydration, as well as ibuprofen use. He has already stopped ibuprofen, as advised in the outpatient setting. Follow with IV hydration Current Visit: Yes Status: Acute Code(s): N17.9 - ACUTE KIDNEY FAILURE, UNSPECIFIED SNOMED Code(s): 51206012
[2018-03-16 17:43] LABS: Glucose,Whole Blood 138 mg/dL (75-99)
--- NOTE | 2018-03-16 18:05 | CONS ---
CONSULTATION DATE OF SERVICE: 03/16/18 REASON FOR CONSULTATION: Abdominal pain, lactic acidosis. HISTORY OF PRESENT ILLNESS: The patient is a 57-year-old male with a past medical history significant for metastatic prostate cancer with metastases to the bone and to the liver for which the patient has been on chemotherapy under Dr. He in the middle of February 2018. The patient has been coming to the [facility] ER on 03/15/2018 with chief complaint of abdominal pain. Apparently the patient pain has been going on for almost abdominal off and on with worsening of the last 1 month. Pain described to more in the upper abdominal area, more of a dull ache and aching at times and severe intensity almost 10/10. The patient felt nauseated with it and has decreased oral intake. The patient denies having any diarrhea or any constipation. The patient denies any high-grade fever. With these symptoms, the patient has been evaluated by the ER physician. On arrival to the ER, the patient did not have any fever. His white count was normal at 8.3. Repeat is 8.4. The patient did have elevated creatinine 2.5. Lactic acid was 2.2 and repeat is down to 1.9. He did have elevated liver enzymes and urine has been significantly positive. I was asked to see the patient regarding with concern for possible infectious etiology with elevated lactic acid and for antibiotic therapy. The patient did have a CT abdomen and pelvis along with a bone scan completed on 03/14/2018 in the outpatient setting, which did show multiple hypoattenuating masses noted throughout the liver compatible with metastatic disease. The largest mass measures approximately 12.6 into 12.4 cm and was both left upper lobe and muscle wall segment and there was evidence of hepatomegaly along with the blastic metastatic lesion noted throughout the thoracic and lumbar vertebra. REVIEW OF SYSTEMS: CONSTITUTIONAL: Positive for weakness, but no high-grade fever. Eyes no complaint. ENT no complaint. Respiratory no complaint. Cardiovascular no complaint. Genitourinary as per HPI. GASTROINTESTINAL: As per HPI. Musculoskeletal no complaint. Integumentary: No complaint. Psychological: No complaint. Neurologic no complaint. PAST MEDICAL HISTORY: Gastroesophageal reflux disease with metastatic prostate cancer. PAST SURGICAL HISTORY: Prostate surgery. SOCIAL HISTORY: No history of smoking, drinking or drug use. FAMILY HISTORY: Father history of diabetes mellitus, osteoarthritis and renal disease. Mother history of renal failure. ALLERGIES: No known drug allergies. MEDICATION: Medications include the patient is currently on Ativan, morphine, Narcan, Zofran, Percocet, Protonix, TPN, and IV fluids. EXAMINATION: Her blood pressure is 130/76, pulse of 98, temperature 97.4. He is 98% on room air. General description is a middle-aged male lying in bed in no distress. No tachypnea or accessory muscles of respiration use. HEENT: Shows pallor. No scleral icterus. Oral mucosa membranes is dry. No pharyngeal erythema or thrush. Neck trachea central. No thyromegaly. Lungs unlabored breathing, clear to auscultation anteriorly. No wheezes or crackles. Heart S1 , S2. Regular rate and rhythm. Abdomen soft, the patient has very hard abdomen to palpation. No guarding or rigidity. Extremities are no edema of the feet. Examination of the skin no rash or mass palpable. Neurological: Patient is awake, alert, oriented x3. Mood and affect normal. LABS: Hemoglobin 7.8, white count 8.4 with a BUN of 68, creatinine 2.46. Lactic acid repeat is 1.9 and urine is negative. Liver enzymes are elevated. CT abdominal and pelvis report as mentioned above. IMPRESSION/PLAN: Patient admitted to the hospital with abdominal pain, more likely related to his significant metastatic disease to his liver from underlying prostate cancer in a patient who is not running any fever. Did have elevated white count with concern for possible abscess to be less likely. The patient did have a mildly elevated lactic acid which could be related to his decreased p.o. intake and dehydration rather than true sepsis. PLAN: 1. The patient may benefit from IV fluid and rehydration. 2. No need for any systemic antibiotic therapy as clinical suspicion for underlying infection is low. 3. Management of his underlying malignancy per the Oncology team. present at bedside. All her questions and concerns were answered. MMODL / IJN: [id number] / MTDD
[2018-03-16 23:54] LABS: Glucose,Whole Blood 149 mg/dL (75-99)
[2018-03-17] MEDS: MORPHINE ORAL SOLN 10 MG/5 ML CUP PO PRN (02:10)
[2018-03-17 05:46] LABS: Glucose,Whole Blood 149 mg/dL (75-99)
[2018-03-17 07:43] LABS: Anisocytosis Slight; HCT 22.9 % (39.0-53.0); HGB 7.5 gm/dL (13.0-17.5); Hypochromasia Moderate; MCHC 32.7 g/dL (31.0-37.0); MCV 104.2 fL (80.0-100.0); Macrocytosis Moderate; Mean Platelet Volume 8.3; RDW 17.3 % (11.5-15.5)
[2018-03-17 07:45] LABS: Ionized Calcium 4.3 mg/dL (4.5-5.3)
[2018-03-17 07:46] LABS: Calcium 7.3 mg/dL (8.4-10.2); Magnesium 3.5 mg/dL (1.6-2.3); Phosphorus 2.6 mg/dL (2.5-4.5); Potassium 4.7 mmol/L (3.5-5.1)
[2018-03-17] MEDS: PANTOPRAZOLE 40 MG/10 ML VIAL IV SCH (07:59)
[2018-03-17] MEDS: oxyCODONE-APAP 10-325MG 1 EACH TAB PO PRN ×4 (08:12→23:58)
[2018-03-17 08:21] LABS: Platelet Count 75 k/uL (150-450)
[2018-03-17 09:06] LABS: Band Neutrophils % 5 %; Eosinophils # (M) 0.26 k/uL (0-0.7); Metamyelocytes # (M) 0.26 k/uL (0); Metamyelocytes % 3 %; Myelocytes # (M) 0.09 k/uL (0); Myelocytes % 1 %; Neutrophils % (M) 70 %; Nucleated Red Blood Cells 5 /100 WBC (0-0); Total Cells Counted 200; WBC 8.6 k/uL (3.8-10.6)
[2018-03-17 09:08] LABS: Poikilocytosis (M) Present; RBC Fragments Present; Tear Drop Cells Present
[2018-03-17] MEDS: methylPREDNISolone SOD SUCCI 40 MG/ML 1 ML VIAL IV SCH ×2 (10:41→21:29)
[2018-03-17] MEDS: SODIUM CHLORIDE 0.9% 1,000 ML IV SCH (10:57)
[2018-03-17] MEDS ORDERED: CALCIUM GLUCONATE 1,000 MG in SODIUM CHLORIDE 0.9% 100 ML IVPB ONE (11:00)
--- NOTE | 2018-03-17 11:30 | PN ---
PROGRESS NOTE This is a 57-year-old white male with rapidly progressive metastatic disease, a prostate cancer over 3 year period. He now has a history of metastatic disease to the bone and also to the liver. He went through approximately 18 rounds of chemo. He has an appointment at [facility] to try to be evaluated for clinical trial on March 20 and we are still attempting to get there. His CT scan of the abdomen and pelvis of 03/14 reveals multiple hyperattenuated masses noted throughout the liver compatible with metastatic disease. The largest mass measures approximately 12.6 x 12.4 cm and involves both the right and left hepatic lobes. Masses involve these segments. There is evidence of hepatomegaly, stable iliac, right iliac chain adenopathy measures 1.8, a stable blastic metastatic disease to the osseus area. completed on March 14 reveals [id number]-[id number]-count foci are present throughout the skeleton. Increased radial pharmacological uptake included the , convexity, clavicles on the right, left scapular, ribs, sternum, thoracic, lumbar, pelvis, the proximal femur. His lab at this time shows hemoglobin of 7.5, 8.6 WBC, creatinine at 2, BUN is 71 and progressive metastatic disease. He also complains of severe inner itching at this time. His blood cultures are all being completed throughout and at this time they are negative. We put in a consultation with Dr. Ferrell for Infectious Disease and because of not having a mildly elevated lactic acid, he feels that this is probably secondary from dehydration. At this time, no systemic antibiotics needed, but we will watch him accordingly. I appreciate Dr. He is comments and notes today. REVIEW OF SYSTEMS: The patient denies any fever or chills. Eyes: No blurry vision. No change in vision. His ENT shows no headache. No sore throat. No ear pain. Respiratory does have some shortness of breath with exertion, but denies fever, sputum production, hemoptysis. Cardiovascular no chest pain, no palpitations. No arrhythmia. GI no hematemesis, melena or hematochezia. No heartburn. At this time he has positive abdominal pain, but just in general. has some burning on urination. Occasionally cloudy urination and sometimes hard to urinate. Musculoskeletal: He has extensive pain throughout the muscles. Integumentary: He says he is having pruritus. PSYCHIATRIC: Positive for depression. He denies suicidal or homicidal idealization but he is realistic about his chances and talks about the Silver bullet, not suicidal, but his way of saying that this was probably him coming to an end. Endocrine is positive for weight loss unintentionally. He has weakness. Hematological: He has got anemia from chronic disease along with longstanding metastatic disease to the bone and also chemotherapy. PAST MEDICAL HISTORY: Is for his cancer and GE reflux. Additional medical history of a prostate cancer with mets to the scalp area. He has had radiation chemo. He has not had any problems with blood transfusion. He had prostate surgery with Dr. Marshall, motion sickness. MEDICATIONS ARE: That of Ativan p.r.n. every 6 hours, and Duragesic patch. He has started 50 mg, which I think is quite appropriate for pain, calcium gluconate 1000 mg once for low potassium. He is on Zofran 4 mg every 6 hours. Takes Percocet 10-3-5 every 4 hours, Protonix, taken 40 mg a day. Supplemental vitamins, was started on hyperalimentation today. We D/C his morphine. PHYSICAL EXAMINATION: VITAL SIGNS: Blood pressure 146/71, pulse rate in the 100s, and temperature is 97.6, and O2 saturation is 97. Eyes pupils are equal, round, react to light accommodation. ENT showed tympanic membranes and pharynx to be negative. Neck is supple with midline trachea. Chest: He has a minimal amount of rhonchi respiratory but essentially clear. Heart is sinus rhythm with no murmur. Abdomen is softer today with much less tenderness to palpation. No organomegaly, organomegaly with a large liver is felt. Lower extremities are pale, but good circulation. Weak pulses without. Integumentary: Patient is very pale secondary to his anemia. Psychiatric: The patient is stable at this time. Obviously, some depression and anxiety, but is well controlled, generally has a very well controlled manner. ASSESSMENT: 1. Prostate cancer with metastatic disease to the bone, very progressive over 3 year period of time. 2. Chemical changes secondary from anemia which include anemia. 3. Thrombocytopenia from chemotherapy. 4. Abdominal pain from increased metastatic disease. 5. Acute renal disease with a creatinine now in the 2.46 which is actually improved. 6. Hyperkalemia. 7. Elevated lactic acidosis is felt to probably be released today is related with the cancer and dehydration and not secondary from infection. 8. Moderately elevated liver function tests to the metastatic disease. 9. Protein malnutrition. 10.Mets to the bone. 11.Difficulty with ambulation secondary to carcinoma and METS. PLAN: Hematological evaluation with Dr. He. I had a long talk with him and he does set up for a trial on the . We will given his hyperalimentation today, see if that helps. If not, we have been realistic and actually talked with his sister with him about the possibility of hospice if he worsens over the next 24 hours. We just used a peripheral . We DC morphine, put him on a Duragesic patch. Infectious Disease, Dr. Ferrell is following him accordingly. Increase Zofran. The patient prefers popsicles and also mandarin oranges, so we are going to add that and see how that works for him at his choice. His prognosis is very guarded and we will follow him accordingly. JENNIFER / MARCELO: [id number] /
[2018-03-17 12:13] LABS: Glucose,Whole Blood 154 mg/dL (75-99)
[2018-03-17] MEDS: MVI, ADULT NO.4 WITH VIT K 10 ML, TRACE (CONC-1ML/DOSE) 1 ML in AMIN 2.4%/DEX 6.8%/LIPI... IV SCH ×6 (14:29→15:37)
[2018-03-17 18:09] LABS: Glucose,Whole Blood 192 mg/dL (75-99)
--- NOTE | 2018-03-17 18:22 | P.PN ---
Subjective Progress Note Date: 03/17/18 The patient continues to be quite weak. Oral intake remains poor. He feels that his pain is somewhat worse today. He also feels that his mentation is slow and he is having some difficulty with recall. Objective - Vital Signs Vital signs: Vital Signs Temp 97.5 F L 03/17/18 15:00 Pulse 100 03/17/18 15:00 Resp 18 03/17/18 15:00 BP 154/75 03/17/18 15:00 Pulse Ox 96 03/17/18 15:00 Intake & Output 03/16/18 03/17/18 03/17/18 18:59 06:59 18:59 Intake Total 1930 Output Total 300 950 Balance -300 981 Weight 81.647 kg 78 kg 78 kg Intake: Intake, IV Titration 1930 Amount Mvi, Adult No.4 with Vit 1931 K 10 ml Trace (Conc-1Ml/ Dose) 1 ml In Paul 2.4%/ Dex 6.8%/Lipid/Lytes 1, 920 ml @ 80 mls/hr IV . Q24H ROSE MARIE Rx#:[id number] Output: Urine 300 950 Straight 650 Other: Voiding Method Toilet Toilet Toilet Urinal Urinal # Voids 2 - Constitutional General appearance: Present: mild distress - EENT Eyes: Present: PERRLA ENT: Present: normal oropharynx - Respiratory Respiratory: bilateral: diminished - Cardiovascular Rhythm: regular Heart sounds: normal: S1, S2 - Gastrointestinal General gastrointestinal: Present: hepatomegaly - Integumentary Integumentary: Present: normal - Neurologic Neurologic: Present: CNII-XII intact - Musculoskeletal Musculoskeletal: Present: generalized weakness, strength equal bilaterally - Psychiatric Psychiatric: Present: A&O x's 3 - Labs CBC & Chem 7: 03/17/18 07:07 03/17/18 07:07 Labs: Abnormal Lab Results - Last 24 Hours (Table) 03/16/18 03/17/18 03/17/18 Range/Units 23:52 05:42 07:07 RBC 2.20 L (4.30-5.90) m/uL Hgb 7.5 L (13.0-17.5) gm/dL Hct 22.9 L (39.0-53.0) % MCV 104.2 H (80.0-100.0) fL RDW 17.3 H (11.5-15.5) % Plt Count 75 L (150-450) k/uL Metamyelocytes # (Man) 0.26 H (0) k/uL Myelocytes # (Manual) 0.09 H (0) k/uL Nucleated RBCs 5 H (0-0) /100 WBC Chloride (98-107) mmol/L Carbon Dioxide (22-30) mmol/L BUN (9-20) mg/dL Creatinine (0.66-1.25) mg/dL Glucose (74-99) mg/dL POC Glucose (mg/dL) 149 H 149 H (75-99) mg/dL Calcium (8.4-10.2) mg/dL Ionized Calcium René (4.5-5.3) mg/dL Magnesium (1.6-2.3) mg/dL 03/17/18 03/17/18 03/17/18 Range/Units 07:07 12:00 17:57 RBC (4.30-5.90) m/uL Hgb (13.0-17.5) gm/dL Hct (39.0-53.0) % MCV (80.0-100.0) fL RDW (11.5-15.5) % Plt Count (150-450) k/uL Metamyelocytes # (Man) (0) k/uL Myelocytes # (Manual) (0) k/uL Nucleated RBCs (0-0) /100 WBC Chloride 108 H (98-107) mmol/L Carbon Dioxide 16 L (22-30) mmol/L BUN 71 H (9-20) mg/dL Creatinine 2.04 H (0.66-1.25) mg/dL Glucose 144 H (74-99) mg/dL POC Glucose (mg/dL) 154 H 192 H (75-99) mg/dL Calcium 7.3 L (8.4-10.2) mg/dL Ionized Calcium René 4.3 L (4.5-5.3) mg/dL Magnesium 3.5 H (1.6-2.3) mg/dL Microbiology - Last 24 Hours (Table) 03/15/18 14:38 Blood Culture - Preliminary Blood No Growth after 48 hours 03/16/18 08:08 Blood Culture - Preliminary Blood No Growth after 24 hours 03/16/18 08:08 Blood Culture - Preliminary Blood No Growth after 24 hours 03/15/18 17:00 Urine Culture - Final Urine,Voided Assessment and Plan (1) Prostate cancer, primary, with metastasis from prostate to other site Narrative/Plan: The patient's performance status continues to be quite poor. He is essentially bedbound. Oral intake remains very limited. The case was discussed with the admitting service. Continue aggressive supportive care with IV fluids and parenteral nutrition. The case was discussed in detail with the admitting service, as well as the patient and his family. Given the rapid progression of the cancer, and his poor performance status, prognosis is felt to be extremely guarded. If the patient continues to do poorly despite ongoing aggressive supportive care, then we will discuss comfort care measures. In that case it is very unlikely that any significantly effective options would be available from his pending consultation at [facility]. Current Visit: Yes Status: Acute Code(s): C79.9 - SECONDARY MALIGNANT NEOPLASM OF UNSPECIFIED SITE; C61 - MALIGNANT NEOPLASM OF PROSTATE SNOMED Code (s): 00367761 (2) Intractable abdominal pain Narrative/Plan: The patient feels that the Roxanol that was prescribed recently was not very effective. However he stated that he was unable to recall accurately. Therefore that will be held for now. His fentanyl dose will be increased to 50 g. At this time we will try to utilize Percocet for breakthrough pain. If the Percocet is not optimally effective, we will reattempt Roxanol. Current Visit: Yes Status: Acute Code(s): R10.9 - UNSPECIFIED ABDOMINAL PAIN SNOMED Code(s): 02789244 (3) Acute kidney injury Current Visit: Yes Status: Acute Code(s): N17.9 - ACUTE KIDNEY FAILURE, UNSPECIFIED SNOMED Code(s): 16852004
[2018-03-18] MEDS: oxyCODONE-APAP 10-325MG 1 EACH TAB PO PRN (04:02)
[2018-03-18] MEDS: SODIUM CHLORIDE 0.9% 1,000 ML IV SCH (04:04)
[2018-03-18 05:48] LABS: Glucose,Whole Blood 181 mg/dL (75-99)
[2018-03-18] MEDS: LORazepam 2 MG/ML INJ IV PRN ×2 (07:19→15:16)
[2018-03-18] MEDS: PANTOPRAZOLE 40 MG/10 ML VIAL IV SCH (07:24)
[2018-03-18] MEDS: methylPREDNISolone SOD SUCCI 40 MG/ML 1 ML VIAL IV SCH (07:24)
[2018-03-18 07:52] LABS: Anisocytosis Slight; HGB 7.5 gm/dL (13.0-17.5); Hypochromasia Moderate; MCH 34.1 pg (25.0-35.0); MCHC 32.8 g/dL (31.0-37.0); MCV 103.8 fL (80.0-100.0); Macrocytosis Moderate; Mean Platelet Volume 8.7; Poikilocytosis Slight; RBC 2.22 m/uL (4.30-5.90); RDW 17.9 % (11.5-15.5)
[2018-03-18 07:53] LABS: Calcium 7.9 mg/dL (8.4-10.2); Magnesium 3.7 mg/dL (1.6-2.3); Phosphorus 3.4 mg/dL (2.5-4.5); Potassium 5.5 mmol/L (3.5-5.1)
[2018-03-18 07:54] LABS: Platelet Count 69 k/uL (150-450)
[2018-03-18 08:36] VITALS: BP 140/79; TEMP 97.8
--- NOTE | 2018-03-18 09:00 | P.PN ---
Subjective Progress Note Date: 03/18/18 The pt is much more obtunded today. He is difficult to arouse, even with painful stimuli, which only elicits grimacing. He is having a bloody urine in his Silva. No nausea or vomiting noted. According to nursing, then not sure if he is still in pain as he is not able to communicate effectively. Objective - Vital Signs Vital signs: Vital Signs Temp 97.8 F 03/18/18 07:36 Pulse 104 H 03/18/18 07:36 Resp 18 03/18/18 07:36 BP 140/79 03/18/18 07:36 Pulse Ox 95 03/18/18 07:36 Intake & Output 03/17/18 03/18/18 03/18/18 18:59 06:59 18:59 Intake Total 1931 932 Output Total 950 1050 Balance 981 -118 Weight 78 kg 80.5 kg 80.5 kg Intake: Intake, IV Titration 1931 Amount Mvi, Adult No.4 with Vit 1931 K 10 ml Trace (Conc-1Ml/ Dose) 1 ml In Paul 2.4%/ Dex 6.8%/Lipid/Lytes 1, 920 ml @ 80 mls/hr IV . Q24H ROSE MARIE Rx#:[id number] TPN/PPN 932 Mvi, Adult No.4 with Vit 932 K 10 ml Trace (Conc-1Ml/ Dose) 1 ml In Paul 2.4%/ Dex 6.8%/Lipid/Lytes 1, 920 ml @ 80 mls/hr IV . Q24H ROSE MARIE Rx#:[id number] Output: Urine 950 1050 Straight 650 900 Other: Voiding Method Toilet Toilet Indwelling Catheter Urinal # Voids 2 - Constitutional Constitutional Comment(s): Sleeping, difficult to arouse - EENT Eyes: Present: PERRLA ENT: Present: normal oropharynx - Respiratory Respiratory: bilateral: diminished - Cardiovascular Rhythm: regular Heart sounds: normal: S1, S2 - Gastrointestinal General gastrointestinal: Present: hepatomegaly, normal bowel sounds, soft - Integumentary Integumentary: Present: normal - Musculoskeletal Musculoskeletal: Present: generalized weakness - Labs CBC & Chem 7: 03/18/18 07:01 03/18/18 07:01 Labs: Abnormal Lab Results - Last 24 Hours (Table) 03/17/18 03/17/18 03/17/18 Range/Units 07:07 12:00 17:57 WBC (3.8-10.6) k/uL RBC (4.30-5.90) m/uL Hgb (13.0-17.5) gm/dL Hct (39.0-53.0) % MCV (80.0-100.0) fL RDW (11.5-15.5) % Plt Count (150-450) k/uL Metamyelocytes # (Man) 0.26 H (0) k/uL Myelocytes # (Manual) 0.09 H (0) k/uL Nucleated RBCs 5 H (0-0) /100 WBC Potassium (3.5-5.1) mmol/L Chloride (98-107) mmol/L Carbon Dioxide (22-30) mmol/L BUN (9-20) mg/dL Creatinine (0.66-1.25) mg/dL Glucose (74-99) mg/dL POC Glucose (mg/dL) 154 H 192 H (75-99) mg/dL Calcium (8.4-10.2) mg/dL Magnesium (1.6-2.3) mg/dL 03/18/18 03/18/18 03/18/18 Range/Units 05:46 07:01 07:01 WBC 12.9 H (3.8-10.6) k/uL RBC 2.22 L (4.30-5.90) m/uL Hgb 7.5 L (13.0-17.5) gm/dL Hct 23.0 L (39.0-53.0) % MCV 103.8 H (80.0-100.0) fL RDW 17.9 H (11.5-15.5) % Plt Count 69 L (150-450) k/uL Metamyelocytes # (Man) (0) k/uL Myelocytes # (Manual) (0) k/uL Nucleated RBCs (0-0) /100 WBC Potassium 5.5 H (3.5-5.1) mmol/L Chloride 109 H (98-107) mmol/L Carbon Dioxide 14 L (22-30) mmol/L BUN 74 H (9-20) mg/dL Creatinine 2.03 H (0.66-1.25) mg/dL Glucose 168 H (74-99) mg/dL POC Glucose (mg/dL) 181 H (75-99) mg/dL Calcium 7.9 L (8.4-10.2) mg/dL Magnesium 3.7 H (1.6-2.3) mg/dL Microbiology - Last 24 Hours (Table) 03/15/18 14:38 Blood Culture - Preliminary Blood No Growth after 48 hours 03/16/18 08:08 Blood Culture - Preliminary Blood No Growth after 24 hours 03/16/18 08:08 Blood Culture - Preliminary Blood No Growth after 24 hours Assessment and Plan (1) Prostate cancer, primary, with metastasis from prostate to other site Narrative/Plan: The patient is more obtunded today. This could be due to pain medication effect, but progressive disease in the liver and hepatic encephalopathy cannot be ruled out. Continue current supportive care, including parenteral nutrition. If patient's clinical status is not improving, overall prognosis would be felt to be quite poor and we will consider comfort care. Current Visit: Yes Status: Acute Code(s): C79.9 - SECONDARY MALIGNANT NEOPLASM OF UNSPECIFIED SITE; C61 - MALIGNANT NEOPLASM OF PROSTATE SNOMED Code (s): 52964262 (2) Intractable abdominal pain Narrative/Plan: According to nursing, they're not sure if the patient's pain control is effective. It is possible that his obtundation could be due to pain medications in the setting of liver dysfunction. At this time, I will discontinue the fentanyl, and the Percocet and use IV morphine alone for pain control. Current Visit: Yes Status: Acute Code(s): R10.9 - UNSPECIFIED ABDOMINAL PAIN SNOMED Code(s): 85972670 (3) Acute kidney injury Narrative/Plan: Creatinine has improved mildly. Continue IV fluids Current Visit: Yes Status: Acute Code(s): N17.9 - ACUTE KIDNEY FAILURE, UNSPECIFIED SNOMED Code(s): 25176709 Plan: Patient is much more obtunded today, with differentials including progressive liver dysfunction, as well as pain medication effect. Pain meds will be adjusted. I'll also check liver enzymes ammonia level.
[2018-03-18 09:01] LABS: Band Neutrophils % 9 %; Basophils # (M) 0.12 k/uL (0-0.2); Lymphocytes # (M) 0.98 k/uL (1.0-4.8); Metamyelocytes # (M) 0.37 k/uL (0); Metamyelocytes % 3 %; Monocytes # (M) 0.98 k/uL (0-1.0); Myelocytes # (M) 0.12 k/uL (0); Myelocytes % 1 %; Neutrophils % (M) 71 %; Nucleated Red Blood Cells 5 /100 WBC (0-0); Total Cells Counted 200; WBC 12.3 k/uL (3.8-10.6)
[2018-03-18] MEDS ORDERED: MORPHINE SULFATE 4 MG/ML SYRINGE IVP PRN (09:01)
[2018-03-18 09:02] LABS: Polychromasia Present; RBC Fragments Present; Tear Drop Cells Present
[2018-03-18 09:41] LABS: Albumin 3.6 g/dL (3.5-5.0); Calcium 7.9 mg/dL (8.4-10.2); Potassium 5.7 mmol/L (3.5-5.1); Total Bilirubin 1.1 mg/dL (0.2-1.3); Total Protein 6.1 g/dL (6.3-8.2)
[2018-03-18 11:46] LABS: Glucose,Whole Blood 157 mg/dL (75-99)
--- NOTE | 2018-03-18 13:16 | PN ---
PROGRESS NOTE DATE OF SERVICE: 03/18/2018. HISTORY: A 57-year-old white male with rapid progressive metastatic disease from prostate cancer over the last 3 years. He has now had a history of metastatic disease to the bones and liver. He has exacerbated very quickly over the last several months and at this time we are attempting to improve his status so he can get to [facility] on March 20 to attempt being put into a trial. Unfortunately, his CT scan of the abdomen and pelvis on March 14 reveal multiple attenuated masses noted throughout the liver and bone with too numerous to count per bone scan. So, at this time due to his weakness, not eating and drinking, he was placed in the hospital with severe dehydration. He was put on TPN and also to be kept comfortable. Unfortunately, he became much more obtunded over the last half a day and he is pretty confused. He will open his eyes if you talk to him loudly, but obviously with no recognition. His hemoglobin is at 7.5, WBC is 12.3, creatinine is at 2 with a 73 BUN, which is no change. Liver enzymes are very elevated with AST of 508, an ALT of 433 and an alkaline phosphatase of 620. His microbiology so far has come back with no growth for blood cultures as of March 15 and urine culture of March 15. REVIEW OF SYSTEMS: Very difficult to ascertain other than GI. He has had no hematemesis, no hematochezia. His urination had bladder retention and so we put a catheter in, which is more comfortable. He is staying on his pain medication, which is the Duragesic patch and taken off the Percocet and added morphine p.r.n. PHYSICAL EXAMINATION: Vital signs at this time, this is a very obtunded, thin, pale, white male with a temperature 97.8, heart rate of 104, respirations 18, blood pressure 140/79 at room air. EYES: Pupils are equal, round, react to light accommodation but palpebra conjunctivae is very pale. ENT has a very dry mouth. NECK: Negative. CHEST: Clear to auscultation. HEART: Sinus rhythm with no murmur. ABDOMEN: Firm with a very large liver. EXTREMITIES: Normal but pale with very weak pulses. SKIN: No evidence of infection or rash. Does not appear to be wheezing or having any problems with allergies and is appears to be resting comfortably. ASSESSMENT: 1. Malignant neoplasm of the prostate with metastatic disease to bone and liver. 2. Acute renal failure. 3. Metastatic disease to the liver. PLAN: At this time, we will go through with IV morphine and the use of the Duragesic patch continued. Add 50. We can add the Roxanol morphine by mouth. I had a long talk with his daughter and the daughter's children. The is not there at this period of time. I let them know the prognosis was very poor today and that we are going to supportively keep him under good control. We will discontinue the steroids and discontinue the hyperalimentation. His prognosis is very poor. MMODL / IJN: [id number] /
[2018-03-18] MEDS ORDERED: MORPHINE SULFATE (100 MG/2 ML) 100 MG in SODIUM CHLORIDE 0.9% 100 ML IV SCH (17:45)
[2018-03-18 23:39] VITALS: PULSE 125; RESP 35
[2018-03-19] MEDS: SODIUM CHLORIDE 0.9% 1,000 ML IV SCH (03:03)
[2018-03-19] MEDS ORDERED: methylPREDNISolone SOD SUCCI 40 MG/ML 1 ML VIAL IV SCH (09:00)
--- NOTE | 2018-04-18 14:27 | P.DS ---
Providers Date of admission: 03/15/18 16:14 Expected date of discharge: 03/19/18 Attending physician: Dariusz Madden Consults: 03/15/18 16:18 Consult Physician Stat Consulting Provider: Stevie He Consult Reason/Comments: Prostate cancer with metastasis Do you want consulting provider notified?: Yes 03/16/18 08:25 Consult Physician Routine Consulting Provider: Bhumika Ferrell Consult Reason/Comments: elevated lactic acid, abdominal pain Do you want consulting provider notified?: Yes Primary care physician: Stevie He Hospital Course: 57-year-old male who presented to the emergency room with a chief complaint of abdominal pain, nausea, and generalized weakness. He reports shortness of breath with exertion, but not at rest. He fatigues very quickly. He states he has been unable to tolerate PO intake for at least a week. The patient has a history of prostate cancer with mets to the liver and bone. He states he has underwent 18 rounds of chemotherapy. He reports he has an appointment with [facility] in [place] on 03/20/2018 for evaluation to be placed into a clinical trial. CT abdomen and pelvis completed 03/14/2018 revealed multiple hypoattenuating masses noted throughout the liver compatible with metastatic disease. The largest mass measures approximately 12.612.4 cm and involves both right and left hepatic lobes. Masses involve all segments. There is evidence of hepatomegaly. Stable right iliac chain adenopathy measuring 1.2 cm. Stable blastic metastatic disease to the osseous structures. Bone scan completed 03/14/2018 revealed too numerous to count foci are present throughout the skeleton of increased radio pharmaceutical uptake include the calvarium convexity, clavicle on the right, left scapula, ribs and sternum, thoracic and lumbar spine, pelvis, proximal femurs which are stable compared to prior examination Laboratory data: WBC 8.3. Hemoglobin 8.3. Platelet count 87. Sodium 140. Potassium 5.2. BUN 65. Creatinine 2.54. Glucose 99. Lactic acid 2.2. AST 937. ALT 654. Alkaline phosphatase 659. Urinalysis reveals: 2+ proteinuria, 1+ ketones, small blood, WBC 12, few WBC clumps, hyaline casts 10 The patient was admitted to the hospital under the care of Dr. Madden. Consultations were placed to Dr. He. The patient continued to decline over the next couple days. He was started on TPN. He was not eating or drinking. He complained of severe pain. His pain medications were adjusted. He became more obtunded over the past few days and confused at times. Discussion was held with patients family including , daughter, and daughters children. The patient was made comfort care. He peacefully on the morning of 03/19/2017. Please see nursing documentation for specific details of expiration record. Discharge diagnosis: Prostate cancer with metastasis to liver and bone, s/p 18 rounds of chemotherapy per patient Anemia and thrombocytopenia, secondary to above Abdominal pain and nausea with decreased intake x 1 week, may be secondary to metastatic disease, although can not rule out underlying condition Acute kidney injury, creatinine 2.54 on admission, baseline 0.8, likely multifactorial secondary to chemotherapy regimen, dehydration, and decreased oral intake x 1 week, along with daily NSAID use as patient takes Motrin 600mg TID outpatient Hyperkalemia Elevated lactic acid, improved with IV hydration, no obvious infectious disease process at this time Elevated LFTs, secondary to metastatic disease Moderate protein calorie malnutrition with little to no PO intake x 1 week Generalized pain secondary to mets to bone Debility and difficulty with ambulation secondary to CA with mets Nurse practitioner note has been reviewed by physician. Signing provider agrees with the documented findings, assessment, and plan of care. Plan - Discharge Summary Discharge Rx Participant: Yes New Discharge Prescriptions: No Action Hydrocodone/Acetaminophen [Strunk 7.5-325] 1 tab PO Q4HR PRN PRN Reason: Pain Pantoprazole [Protonix] 40 mg PO DAILY Ondansetron HCl [Zofran] 8 mg PO Q6HR PRN PRN Reason: Nausea Ibuprofen [Motrin Ib] 600 mg PO TID PRN PRN Reason: Pain Discharge Medication List Hydrocodone/Acetaminophen [Strunk 7.5-325] 1 tab PO Q4HR PRN 03/15/18 [History] Ibuprofen [Motrin Ib] 600 mg PO TID PRN 03/15/18 [History] Ondansetron HCl [Zofran] 8 mg PO Q6HR PRN 03/15/18 [History] Pantoprazole [Protonix] 40 mg PO DAILY 03/15/18 [History] Follow up Appointment(s)/Referral(s): Stevie He MD [Primary Care Provider] - 1-2 days Discharge Disposition: - Preliminary Cause of Preliminary Cause of : Prostate cancer with metastatic disease to bone and liver
== END 2018-03-19 06:48 | disposition expired | DRG 435 ==
LOC: EC 13:23 → 5ONC 16:14
PROVIDERS: ADMIT Family Medicine; ATTEND Family Medicine
PROC: 3E0336Z Introduction of Nutritional Substance into Peripheral Vein, Percutaneous Approach (ICD-10-PCS; principal; 2018-03-18)
DX: C78.7 Secondary malignant neoplasm of liver and intrahepatic bile duct (principal); K72.00 Acute and subacute hepatic failure without coma; C79.51 Secondary malignant neoplasm of bone; N17.9 Acute kidney failure, unspecified; E44.0 Moderate protein-calorie malnutrition; E87.2 Acidosis; C61 Malignant neoplasm of prostate; K21.9 Gastro-esophageal reflux disease without esophagitis; D69.59 Other secondary thrombocytopenia; R31.9 Hematuria, unspecified; R16.0 Hepatomegaly, not elsewhere classified; N40.0 Benign prostatic hyperplasia without lower urinary tract symptoms; D63.0 Anemia in neoplastic disease; E86.0 Dehydration; E87.5 Hyperkalemia; G89.3 Neoplasm related pain (acute) (chronic); T45.1X5A Adverse effect of antineoplastic and immunosuppressive drugs, initial encounter; Z68.24 Body mass index [BMI] 24.0-24.9, adult; Z83.3 Family history of diabetes mellitus; Z92.21 Personal history of antineoplastic chemotherapy; Z79.1 Long term (current) use of non-steroidal anti-inflammatories (NSAID); Z79.891 Long term (current) use of opiate analgesic; Z79.899 Other long term (current) drug therapy; Z84.1 Family history of disorders of kidney and ureter; Z82.61 Family history of arthritis; Z74.01 Bed confinement status
CPT/HCPCS: 36415; 71250; 74176; 78306; 80048; 80053; 81001; 82140; 82150; 82330; 82565; 83605; 83690; 83735; 84100; 84478; 84520; 85025; 87040; 87086; 96361; 96374; 96375; 96376; 99285